=== PATIENT | male | born 1990 | race African-American/Black ===

== ENCOUNTER 2020-10-12 20:37 | Emergency (ER) | payer MEDICAID, SELFPAY ==
--- NOTE | ~2020-10-12 | XR_ITS ---
EXAMINATION: BILATERAL TOES CLINICAL INFORMATION: First digit pain bilaterally COMPARISON: Multiple prior radiographs from 2006, report only which describe pinning of the distal phalanx of the great toe TECHNIQUE: 3 views each foot FINDINGS: Right: Degenerative changes are present at the interphalangeal joint of the first toe. On the lateral radiograph, there is a suggestion of a fracture which could even be involving the joint space. Alternatively, this could be related to patient's prior right great toe surgery with pinning. Correlate with point tenderness on exam. Left: No significant bone joint or soft tissue abnormality seen XR/XR toe LT min 2V IMPRESSION: Degenerative changes interphalangeal joint on the right first toe. Question of fracture distal phalanx first toe on right versus post surgical change (favor the latter). Correlate with point tenderness on physical exam
--- NOTE | ~2020-10-12 | XR_ITS ---
EXAMINATION: BILATERAL TOES CLINICAL INFORMATION: First digit pain bilaterally COMPARISON: Multiple prior radiographs from 2006, report only which describe pinning of the distal phalanx of the great toe TECHNIQUE: 3 views each foot FINDINGS: Right: Degenerative changes are present at the interphalangeal joint of the first toe. On the lateral radiograph, there is a suggestion of a fracture which could even be involving the joint space. Alternatively, this could be related to patient's prior right great toe surgery with pinning. Correlate with point tenderness on exam. Left: No significant bone joint or soft tissue abnormality seen XR/XR toe RT min 2V IMPRESSION: Degenerative changes interphalangeal joint on the right first toe. Question of fracture distal phalanx first toe on right versus post surgical change (favor the latter). Correlate with point tenderness on physical exam
[2020-10-12 20:55] VITALS: BP 123/73; PULSE 96; RESP 16; TEMP 36.9; O2SAT 96; BMI 41.1
--- NOTE | 2020-10-12 21:23 | ED.GENADULT ---
HPI - General Adult General Chief complaint: General Medical Stated complaint: FOOT INJ Time Seen by Provider: 10/12/20 21:16 Source: patient Mode of arrival: ambulatory Limitations: no limitations History of Present Illness HPI narrative: Patient comes emergency room complaining of bilateral foot pain. Patient states that 3 days ago, he had an ingrown toenail on the right great toe taken out. Patient states that the next day he started having bilateral foot swelling and pain in both toes. Patient denies fever chills. Patient denies calf pain, no chest pain, no shortness of breath. Related Data Previous Rx's Medication Instructions Recorded indomethacin 50 mg PO TID #9 cap 10/12/20 prednisone 20 mg PO DAILY #4 tab 10/12/20 Allergies Allergy/AdvReac Type Severity Reaction Status Date / Time amoxicillin Allergy Unknown Verified 10/12/20 20:54 Review of Systems Review of Systems: Constitutional : No Weight loss, No Fever, No Chills, No Night Sweats, No Fatigue, No Malaise ENT/Mouth : No Hearing loss, No Ear Pain, No Nasal Congestion, No Sinus Pain, No Hoarseness, No sore throat, No Rhinorrhea, No Swallowing Difficulty Eyes: No Eye Pain, No Swelling, No Redness, No Foreign Body, No Discharge, No Vision Changes Cardiovascular : No Chest Pain, No SOB, No Dyspnea on Exertion, No Orthopnea, No Edema, No Palpitations Respiratory : No Cough, No Sputum, No Wheezing, No Smoke Exposure, No Dyspnea Gastrointestinal : No Nausea, No Vomiting, No Diarrhea, No Constipation, No abdominal Pain, No Hematochezia, No Melena Genitourinary : no irregular bleeding, No Dysuria, No Urinary Frequency, No Hematuria, No Urinary Incontinence, No Urgency, No Flank Pain, No Urinary Flow Changes, No Hesitancy Musculoskeletal : No joint pain, No Myalgias, complaining of bilateral foot swelling Skin : Healing embedded toenail on the right great toe Neuro : No Weakness, No Numbness, No Paresthesias, No Loss of Consciousness, No Dizziness, No Headache Psych : No Anxiety/Panic, No Depression, No SI/HI/AH/VH, No Social Issues, Heme/Lymph: No Bruising, No Bleeding,No Lymphadenopathy Endocrine : No Polyuria, No Polydipsia, No Temperature Intolerance PMFSH Social History Social History Advance Directives: No Advance Directives Information Provided: Yes Physical Exam Vital Signs: Vital Signs: Last Vital Signs Temp 97.8 F 10/12/20 23:24 Pulse 85 10/12/20 23:24 Resp 16 10/12/20 23:24 BP 112/70 10/12/20 23:24 Pulse Ox 97 10/12/20 23:24 Body Mass Index 41.1 Appearance: Alert. Oriented X3. No acute distress. Eyes: Pupils equal, round and reactive to light. ENT: Pharynx normal. Neck: Normal inspection. Neck supple. No lymph nodes noted. No crepitus CVS: Normal heart rate and rhythm. Pulses normal. Normal S1 and S2 Respiratory: No respiratory distress. Breath sounds normal. No Wheezing. No rales Abdomen: Soft and nontender. No rigidity. No distention. good BS x4 Skin: Skin warm and dry. Half of the Nail missing on the medial aspect of the right great toe, no pus drainage, no cellulitis Extremities: Bilateral foot edema, pain to touch over the 1st metatarsals bilaterally, left greater toe slightly erythematous Neuro: Oriented X 3. No motor deficit. No sensory deficit. Moving all extermities. No slurred speech. Course Course Course Narrative: I discussed the physical exam with the patient and the labs. Patient's right toe likely secondary due to post nail extraction, the left great toe is likely hurting secondary to gout. Patient's uric acid is slightly elevated. Medical Decision Making Lab Data Result diagrams: 10/12/20 21:37 10/12/20 21:37 Labs: Lab Results 10/12/20 10/12/20 10/12/20 Range/Units 21:37 21:37 22:40 WBC 10.0 (4.8-10.8) X10*3/uL RBC 4.53 L (4.60-5.80) X10*6/uL Hgb 13.7 L (14.0-18.0) g/dl Hct 40.5 L (42-52) % MCV 89.4 (80-98) fL MCH 30.2 (27.0-33.0) pg MCHC 33.8 (31.0-36.0) g/dl RDW 13.0 (11.0-16.0) % Plt Count 267 (160-400) X10*3/uL MPV 10.3 (9.4-12.4) fL Immature Gran % (Auto) 0.9 H (0.0-0.4) % Neut % (Auto) 62.8 (45-73) % Lymph % (Auto) 25.7 (20-40) % Brooke % (Auto) 6.9 (2-11) % Eos % (Auto) 3.0 (0-4) % Baso % (Auto) 0.7 (0-2) % Lymph # (Auto) 2.6 (1.2-4.9) X10*3/uL Brooke # (Auto) 0.7 (0.1-1.2) X10*3/uL Eos # (Auto) 0.3 (0.0-0.4) X10*3/uL Baso # (Auto) 0.1 (0.0-0.2) X10*3/uL Abs Immat Gran (auto) 0.09 H (0.00-0.03) X10*3/uL Absolute Neuts (auto) 6.2 (2.0-8.3) X10*3/uL Absolute Nucleated RBC 0.000 (0.0-0.012) X10*3/uL Nucleated RBC % (auto) 0.0 (0.0-0.2) /100WBC D-Dimer < 200 NG/ML Sodium 141 (135-145) mmol/L Potassium 4.0 (3.3-5.1) mmol/L Chloride 106 (96-108) mmol/L Carbon Dioxide 25 (22-29) mmol/L Anion Gap 14 (12-20) BUN 12 (9-16) mg/dL Creatinine 1.05 (0.5-1.4) mg/dL Estim Creat Clear Calc 159.1 Estimated GFR > 60 Random Glucose 101 (60-115) mg/dL Uric Acid 9.0 H (3.4-7.0) mg/dL Calcium 9.3 (8.4-10.2) mg/dL Imaging Data Bilateral toe x-ray: Radiologist's impression: Right: Degenerative changes are present at the interphalangeal joint of the first toe. On the lateral radiograph, there is a suggestion of a fracture which could even be involving the joint space. Alternatively, this could be related to patient's prior right great toe surgery with pinning. Correlate with point tenderness on exam. Left: No significant bone joint or soft tissue abnormality seen XR/XR toe LT min 2V IMPRESSION: Degenerative changes interphalangeal joint on the right first toe. Question of fracture distal phalanx first toe on right versus post surgical change (favor the latter). Correlate with point tenderness on physical exam Discharge Plan Discharge Clinical Impression: Gout attack Qualifiers: Gout site: toe Gout etiology: unspecified cause Laterality: left Qualified Code(s): M10.9 - Gout, unspecified Patient Disposition: Home, Self-Care Instructions: Gout (ED) Additional Instructions: Please follow-up with your primary care physician tomorrow. If you have any worsening or new symptoms, please return to the emergency room or call 911 Prescriptions: New indomethacin 50 mg capsule 50 mg PO TID Qty: 9 RF: 0 prednisone 20 mg tablet 20 mg PO DAILY Qty: 4 RF: 0
[2020-10-12 22:03] LABS: MANUAL DIFF FLAG NO
[2020-10-12 22:05] LABS: Basophils Absolute Auto 0.1 X10*3/uL (0.0-0.2); Basophils Percent Auto 0.7 % (0-2); Eosinophils Absolute Auto 0.3 X10*3/uL (0.0-0.4); Hematocrit 40.5 % (42-52); Hemoglobin 13.7 g/dl (14.0-18.0); Imm Gran Abs Auto 0.09 X10*3/uL (0.00-0.03); Imm Gran Pct Auto 0.9 % (0.0-0.4); Lymphocytes Absolute Auto 2.6 X10*3/uL (1.2-4.9); Lymphocytes Percent Auto 25.7 % (20-40); Mean Corpuscular HGB Conc 33.8 g/dl (31.0-36.0); Mean Corpuscular Hemoglobin 30.2 pg (27.0-33.0); Mean Corpuscular Volume 89.4 fL (80-98); Mean Platelet Volume 10.3 fL (9.4-12.4); Monocytes Absolute Auto 0.7 X10*3/uL (0.1-1.2); Monocytes Percent Auto 6.9 % (2-11); Neutrophils Absolute Auto 6.2 X10*3/uL (2.0-8.3); Neutrophils Percent Auto 62.8 % (45-73); Platelet Count 267 X10*3/uL (160-400); Red Blood Count 4.53 X10*6/uL (4.60-5.80)
[2020-10-12 22:32] LABS: Anion Gap 14 (12-20); Blood Urea Nitrogen 12 mg/dL (9-16); Calcium 9.3 mg/dL (8.4-10.2); Carbon Dioxide 25 mmol/L (22-29); Chloride 106 mmol/L (96-108); Creatinine Clr Calc Pharmacy 159.1; Estimated Glomerular Filt Rate > 60; Glucose Random 101 mg/dL (60-115); Sodium 141 mmol/L (135-145)
[2020-10-12 23:02] LABS: D Dimer < 200 NG/ML
[2020-10-12 23:24] VITALS: BP 112/70; PULSE 85; RESP 16; TEMP 36.6; O2SAT 97
--- NOTE | 2020-10-12 23:25 | PC.NURSE ---
LABS RESULTED. MD AWARE. WAITING FOR REEVALUATION. PT UPDATED.
[2020-10-12] MEDS: Indomethacin 25 MG CAPSULE 50 MG PO (23:56)
[2020-10-12] MEDS: predniSONE 10 MG TABLET 50 MG PO (23:56)
== END 2020-10-13 00:03 | disposition home or self-care (01) ==
PROVIDERS: Emergency Provider Emergency Medicine
DX: M10.9 Gout, unspecified (principal); R60.0 Localized edema; M79.675 Pain in left toe(s); M79.674 Pain in right toe(s)
CPT/HCPCS: 36415; 73660; 80048; 84550; 85025; 85379; 99283; 99284

== ENCOUNTER 2022-08-19 12:03 | Emergency (ER) | payer OTHER, SELFPAY ==
--- NOTE | ~2022-08-19 | CT_ITS ---
EXAMINATION: CT HEAD AND FACIAL BONES WITHOUT CONTRAST CLINICAL INFORMATION: Head and facial trauma. COMPARISON: None TECHNIQUE: Multiple axial images of the head and facial bones were obtained without the administration of intravenous contrast. Coronal and sagittal reformatted images were obtained. This CT examination was performed using dose optimization techniques as appropriate, variously including the following: *Automated exposure control *Adjustment of mA and/or kV according to patient size (this includes techniques or standardized protocols for targeted exams where dose is matched to indication/reason for exam; i.e. extremities or head) *Use of iterative reconstruction technique DLP: 1423 mGy-cm FINDINGS: Head: The cortical sulci are normal. The lateral ventricles are symmetrical. The third and fourth ventricles are in their normal midline position. The basilar and prepontine cisterns are unremarkable. There is no acute intra or extracerebral abnormality. There is no mass effect or midline shift. Sections through the bony calvarium are unremarkable. Facial bones: There is a comminuted nasal bone fracture with depression and minimal displacement on the left. The nasal septum appears intact, but there is mild anterior nasal septal deviation, apex of the right. Mild asymmetric mucosal thickening is seen in the left nasal canal. Mild right molly bullosa is noted. The left maxillary sinus and a right ethmoid air cell show small retention cyst versus inflammatory polyps. A right maxillary antrostomy is patent. No air-fluid levels. The ostiomeatal complexes are patent and within normal limits. No osseous abnormalities are identified. The bony orbits and orbital contents are unremarkable. The visualized mastoid air cells are clear. CT/CT facial bones wo IV con IMPRESSION: 1. No acute intracranial pathology. 2. Comminuted nasal bone fracture with depression and minimal displacement on the left.
[2022-08-19 12:35] VITALS: BP 109/57; PULSE 86; RESP 18; TEMP 36.7; O2SAT 95; BMI 39.9
--- NOTE | 2022-08-19 15:03 | ED_ITS ---
HPI - Head Injury General Chief complaint: Head Injury Stated complaint: laceration Time Seen by Provider: 08/19/22 14:01 Source: patient Mode of arrival: ambulatory Limitations: no limitations History of Present Illness HPI Narrative: Pt is a 31 y/o male with no significant pMHX, cc hit in face with fence with no LOC, but lost vision for a second. 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 When he got out of his truck to try to manually adjust the gate, the gate snapped back into his face/nose. The incident was witnessed by a female working with him and she said his nose was bleeding externally and from the nostrils. He had blurry vision and felt foggy . Bleeding controlled. Pt denies loc, blood thinner's, headache, neck pain, nausea, vomiting, sob, chest pain, abd pain, pelvic pain, or extremity pain. MD Complaint: head injury Onset (ago): hour(s) Mechanism of Injury: work related injury Place: outdoors Loss of Consciousness: no Location of injury: face Related Data Previous Rx's Medication Instructions Recorded indomethacin 50 mg capsule 50 mg PO TID #9 caps 10/12/20 prednisone 20 mg tablet 20 mg PO DAILY #4 tabs 10/12/20 acetaminophen 500 mg tablet 1,000 mg PO QID PRN fever or pain 08/19/22 (Tylenol Extra Strength) #14 tabs doxycycline monohydrate 100 mg 100 mg PO BID 7 days #14 tabs 08/19/22 tablet oxycodone 5 mg tablet 5 mg PO Q6H PRN pain #14 tabs 08/19/22 Allergies Allergy/AdvReac Type Severity Reaction Status Date / Time amoxicillin Allergy Unknown Verified 10/12/20 20:54 Review of Systems Review of Systems: Constitutional : No Fever, No Chills ENT/Mouth :+nose pain, + resolved epistaxis, No Ear Pain, No Hoarseness, No sore throat Eyes: No Eye Pain, No Swelling, No Redness, No Foreign Body Cardiovascular : No Chest Pain, No SOB Respiratory : No Cough, No Dyspnea Gastrointestinal : No Nausea, No Vomiting, No Diarrhea, No abdominal Pain Genitourinary : No Dysuria, No Hematuria Musculoskeletal : No joint pain, No Myalgias, No Joint Swelling Skin : + superficial Skin lacerations, No rash Neuro : + fogginess, +brief loss of vision, +blurry vision (resolved),No Weakness, No Numbness, No Paresthesias, No Loss of Consciousness, No Dizziness, No Headache Psych : No Anxiety/Panic, No Depression Heme/Lymph: no easy bruising, no Lymphadenopathy Endocrine : No Polyuria, No Polydipsia [facility] Past Medical History Attestation statement: The following information was validated with the patient. Source: old records reviewed, obtained from family and nursing notes reviewed Social History Social History Advance Directives: No Advance Directives Information Provided: Yes Physical Exam Vital Signs: Vital Signs: Last Vital Signs Temp 98.1 F 08/19/22 12:35 Pulse 86 08/19/22 12:35 Resp 18 08/19/22 12:35 BP 109/57 L 08/19/22 12:35 Pulse Ox 95 08/19/22 12:35 O2 Del Method 08/19/22 12:35 BMI result Body Mass Index 39.9 vital signs have been reviewed as normal and appeared to be correct. Blood pressure normal. Heart rate normal. Respiration rate normal. Temperature normal. Oxygen saturation normal. Appearance: Alert. Oriented X3. No acute distress. Head: +nose swelling and deformity with <0.5cm linear superficial laceration to bridge of nose, no septal hematoma. No Reddy signs noted. No raccoon eyes noted. Normocephalic. Eyes: +photophobia. PERRLA. EOMI. Conjunctiva are normal. Cornea are normal. Funduscopic exam within normal limits. Sclera normal. Eyelids normal. No papilledema noted. Anterior chamber normal. ENT: EAC normal. TM's Normal. Pharynx normal. Uvula midline. Moist mucous membranes. No active epistaxis noted. Neck: Normal inspection. Neck supple. FROM. No adenopathy. Thyroid Normal. No meningeal signs. No neck mass noted. Nontender. CVS: Normal heart rate and rhythm. Heart sound normal. No murmurs noted. Pulses normal throughout. Respiratory: No respiratory distress. Painless inspiration. Breath sounds normal. Back: Full range of motion noted. Skin: Skin warm and dry. Normal skin color. Normal skin turgor. No rashes/lesions/lacerations noted. Extremities: No lower extremity edema. Extremities exhibit normal range of motion. Extremities nontender. Neuro: Oriented X 3. No motor deficit. No sensory deficit. Reflexes normal. Medications Administered Discontinued Medications Generic Name Dose Route Start Last Admin Trade Name Gretchen PRN Reason Stop Dose Admin Acetaminophen 975 mg 08/19/22 14:25 08/19/22 15:07 Acetaminophen 325 Mg Tablet PO 08/19/22 14:26 975 mg ONCE ONE Administration Diphtheria/Tetanus/Acell Pertussis 0.5 ml 08/19/22 15:12 08/19/22 15:19 Diphth,Pertus(Acell),Tet Adult 0.5 Ml Syringe IM 08/19/22 15:13 0.5 ml .ONCE ONE Administration Medical Decision Making Medical Decision Making [facility] Narrative: This 31-year-old male presents with deformity of the nose and swelling with a lac to the bridge of the nose consistent with story of getting hit in the face with a metal fence. Findings consistent with concussion and nose fracture with superficial laceration. Presentation not consistent with CVA or SAH. Neurological exam without evidence of focal neurological findings. Plan: CT scan shows nasal bone fracture, pt to f/u with oromaxofacial. Pt exhibits symptoms and of concussion and provided with information on proper care. Tetanus needed to be updated so he was vaccinated before leaving. We also Dermabond the superficial laceration on his nose. Will DC home with antibiotics and symptomatic treatment. Patient with friend/significant other at bedside understand agree this plan. Independent Interpretation I performed an independent interpretation of an: CT Scan (I reviewed the CT scan results and agree with radiologist reports) Radiology Impression Discussion of test interpretation with radiology: I have reviewed the radiologist's reading. Radiologist Impression: FINDINGS: Head: The cortical sulci are normal. The lateral ventricles are symmetrical. The third and fourth ventricles are in their normal midline position. The basilar and prepontine cisterns are unremarkable. There is no acute intra or extracerebral abnormality. There is no mass effect or midline shift. Sections through the bony calvarium are unremarkable. Facial bones: There is a comminuted nasal bone fracture with depression and minimal displacement on the left. The nasal septum appears intact, but there is mild anterior nasal septal deviation, apex of the right. Mild asymmetric mucosal thickening is seen in the left nasal canal. Mild right molly bullosa is noted. The left maxillary sinus and a right ethmoid air cell show small retention cyst versus inflammatory polyps. A right maxillary antrostomy is patent. No air-fluid levels. The ostiomeatal complexes are patent and within normal limits. No osseous abnormalities are identified. The bony orbits and orbital contents are unremarkable. The visualized mastoid air cells are clear. ? CT/CT head/brain wo IV con IMPRESSION: 1.? No acute intracranial pathology. 2.? Comminuted nasal bone fracture with depression and minimal displacement on the left. Prescription Management I considered prescription management with: Pain Medication and Antibiotic Patient will be given pain medication for his nasal bone fracture and antibiotics. Discharge Plan Discharge Clinical Impression: Closed head injury, Concussion without loss of consciousness, Closed fracture nasal bone, Work related injury, Laceration of nose Patient Disposition: Home, Self-Care Instructions: Nasal Fracture (ED), Concussion (ED), Laceration Without Closure (ED) Prescriptions: New doxycycline monohydrate 100 mg tablet 100 mg PO BID 7 Days Qty: 14 0RF acetaminophen [Tylenol Extra Strength] 500 mg tablet 1,000 mg PO QID PRN (Reason: fever or pain) Qty: 14 0RF oxycodone 5 mg tablet 5 mg PO Q6H PRN (Reason: pain) Qty: 14 0RF Rx Instructions: Partial Fill upon patient request. No Action indomethacin 50 mg capsule 50 mg PO TID Qty: 9 0RF Rx Instructions: administer with food or milk prednisone 20 mg tablet 20 mg PO DAILY Qty: 4 0RF Referrals: Physician,None [Primary Care Provider] - (Follow-up with ear nose and throat or maxillofacial surgeon) Stand Alone Forms: Work/School Release Interventions: ED Discharge Assessment Last Done: 08/19/22 15:21 Discharge Date/Time: 08/19/22 15:21
[2022-08-19] MEDS: Acetaminophen 325 MG TABLET 975 MG PO (15:07)
[2022-08-19] MEDS: Diphth,Pertus(ACell),Tet Adult 0.5 ML SYRINGE IM (15:19)
== END 2022-08-19 15:21 | disposition home or self-care (01) ==
PROVIDERS: Emergency Provider Emergency Medicine
DX: S06.0X0A Concussion without loss of consciousness, initial encounter (principal); S02.2XXA Fracture of nasal bones, initial encounter for closed fracture; S01.21XA Laceration without foreign body of nose, initial encounter; W20.8XXA Other cause of strike by thrown, projected or falling object, initial encounter; Y93.29 Activity, other involving ice and snow; Y92.481 Parking lot as the place of occurrence of the external cause; Y99.0 Civilian activity done for income or pay
CPT/HCPCS: 70450; 70486; 90471; 90715; 99283; 99284

== ENCOUNTER → 2025-03-09 11:17 | Outpatient (BNVA) | payer OTHER, SELFPAY | PROVIDERS: Visit Provider Physician Assistant | DX: S61.012A Laceration without foreign body of left thumb without damage to nail, initial encounter (principal); W26.9XXA Contact with unspecified sharp object(s), initial encounter; Y93.9 Activity, unspecified; Y92.89 Other specified places as the place of occurrence of the external cause; Y99.9 Unspecified external cause status | CPT/HCPCS: 12002; 99204 ==

== ENCOUNTER → 2025-03-17 14:53 | Outpatient (BNVA) | payer OTHER, SELFPAY | PROVIDERS: Visit Provider Physician Assistant | DX: S61.012A Laceration without foreign body of left thumb without damage to nail, initial encounter (principal); W26.9XXA Contact with unspecified sharp object(s), initial encounter; L03.012 Cellulitis of left finger; Z02.79 Encounter for issue of other medical certificate | CPT/HCPCS: 99212; 99213 ==